=== PATIENT | female | born 1990 | race Caucasian/White ===

== ENCOUNTER → 2021-10-03 | Day surgery (SDC) | payer OTHER ==
[~2021-10-03] MED LIST: ACETAMINOPHEN 325 MG TABLET PO PRN; ALBUTEROL SULFATE 2.5 MG/3 ML NEBU. NEB PRN; ATROPINE 0.5 MG/5 ML DISP.SYRIN. IV PRN; IV RINGERS SOLUTION,LACTATED 1,000 ML IV SCH; MIDAZOLAM HCL PF 2 MG/2 ML VIAL. IV PRN; ONDANSETRON PF 4 MG/2 ML VIAL. IV PRN; PHENOL ORAL SPRAY 177ML BOTTLE. MM PRN; PROPOFOL 10,000 MCG/ML (20ML) VIAL IV ONE; diphenhydrAMINE 50 MG/ML VIAL IV PRN
[2021-10-03 12:32] LABS: U PREG PATIENT NEGATIVE (NEG)
[2021-10-03 14:00] VITALS: BP 120/85
== END | disposition home or self-care (01) ==
LOC: SURG 11:54
PROVIDERS: ATTEND Internal Medicine Gastroenterology
DX: R10.11 Right upper quadrant pain (principal); R12 Heartburn; K21.00 Gastro-esophageal reflux disease with esophagitis, without bleeding; K31.89 Other diseases of stomach and duodenum; Z79.899 Other long term (current) drug therapy; Z98.890 Other specified postprocedural states
CPT/HCPCS: 43239; 81025; J2704; J7120